=== PATIENT | female | born 1980 | race Caucasian/White ===

== ENCOUNTER 2019-10-20 03:35 | Emergency (ER) | payer OTHER ==
[~2019-10-20] VITALS: Ht 175.3 cm; Wt 100.5 kg
[2019-10-20 03:45] VITALS: BP 148/89
[2019-10-20] MEDS ORDERED: IV NORMAL SALINE 1,000ML 1,000 ML IV ONE (04:00)
--- NOTE | 2019-10-20 04:12 | PHYS DOC ---
Past History Past Medical History: Ovarian Cyst (KAELYN MORGAN DO) Adult General Chief Complaint Chief Complaint: VAGINAL PROBLEM HPI HPI Patient is a 39-year-old female who presents with vaginal bleeding. Onset was 3 days ago without any known inciting event or trauma. Nothing known makes better or worse. Patient reports vague suprapubic and left lower quadrant pain that is nonradiating and 6 out of 10 in severity. Timing of symptoms has been constant since onset. Associated symptoms include lightheadedness and nausea. Patient reports having x3 periods this month which is unusual for her. Admits first day of menstrual period was September 29 and lasted for 5 days, subsequent. Started October 07 and lasted for 7 days. Patient concerned that she passed a large clot yesterday evening prompting her to visit our ER for further care. Of note, only abdominal surgery patient has had is been a cholecystectomy. Patient has history of benign left ovarian cysts with prior rupture of cyst requiring x2 units RBC transfusion. She is not , she is not sexually active, no known history of vaginal infections such as STIs, no recent foreign body exposure or other trauma, denies any lesions (KAELYN MORGAN DO) Review of Systems Review of Systems Fourteen body systems of review of systems have been reviewed. See HPI for pertinent positives and negative responses, other knutson all other systems are negative, non-pertinent or non-contributory (KAELYN MROGAN DO) Current Medications Current Medications Current Medications Medications (Trade) Dose Ordered Sig/Mary Jo Start Time Stop Time Status Last Admin Dose Admin Ibuprofen (Motrin) 600 mg 1X ONCE 10/20/19 04:15 10/20/19 04:16 UNV Ondansetron HCl (Zofran) 4 mg 1X ONCE 10/20/19 04:15 10/20/19 04:16 UNV Sodium Chloride 1,000 ml @ 1,000 mls/hr 1X ONCE 10/20/19 04:00 10/20/19 04:59 UNV (KAELYN MORGAN DO) Physical Exam Physical Exam Constitutional: Well developed, well nourished, no acute distress, non-toxic appearance. HENT: Normocephalic, atraumatic, bilateral external ears normal, oropharynx moist, no oral exudates, nose normal. Eyes: PERRLA, EOMI, conjunctiva normal, no discharge. Neck: Normal range of motion, no tenderness, supple, no stridor. Cardiovascular: Heart rate regular, sinus rhythm, no murmurs rubs or gallops Lungs & Thorax: Bilateral breath sounds clear to auscultation Abdomen: Bowel sounds normal, soft, mild tenderness to suprapubic area and left lower quadrant, no guarding, no rebound, no masses, no pulsatile masses. Nonsurgical abdomen, no peritoneal signs : Unremarkable external genitalia, internal genitalia within normal limits, scant blood in vaginal vault without any obvious signs of trauma or active bleeding sites, no discharge, cervix unremarkable without lesions or any gross abnormalities Skin: Warm, dry, no erythema, no rash. Back: No tenderness, no CVA tenderness. Extremities: No tenderness, no cyanosis, no clubbing, ROM intact, no edema. Neurologic: Alert and oriented X 3, grossly normal motor & sensory function, no focal deficits noted. Psychologic: Affect normal, judgement normal, anxious mood (KAELYN MORGAN DO) EKG EKG EKG ordered and interpreted by myself at 0412 hrs. as sinus rhythm at 90 bpm, unremarkable intervals, no axis deviation, no acute ischemic findings, no STEMI (KAELYN MORGAN DO) Radiology/Procedures Radiology/Procedures [] (KAELYN MORGAN DO) Radiology/Procedures IMAGING REPORT Signed PATIENT: ASHU CONNOLLY ACCOUNT: [id number] : 1980 LOCATION: ER AGE: 39 SEX: F EXAM STATUS: REG ER ORD. PHYSICIAN: KAELYN MORGAN DO REASON: LLQ pain, vag bleeding, OMNI 300, 75ml PROCEDURE: CT ABD PELV W/ IV CONTRST ONLY PQRS Compliance Statement: One or more of the following individualized dose reduction techniques were utilized for this examination: 1. Automated exposure control 2. Adjustment of the mA and/or kV according to patient size 3. Use of iterative reconstruction technique CT ABD PELV W/ IV CONTRST ONLY Clinical Indication: Reason: LLQ pain, vag bleeding, Comparison: None. Technique: Helical CT imaging of the abdomen and pelvis is performed after 75 cc of Omnipaque 300 IV contrast. Oral contrast not administered. Findings: Lung bases are essentially clear. Cardiac size normal. There is mild fatty infiltration of the liver. Cholecystectomy. The spleen, pancreas, adrenal glands, and abdominal aorta are normal. Kidneys enhance symmetrically, no hydronephrosis. Bifid right collecting system. No obvious abnormality of the stomach. No dilated small bowel. Scattered stool in the colon. No colon wall thickening is seen. The appendix is normal. No abdominal adenopathy or free fluid. There are scattered subcentimeter mesenteric lymph nodes. Anteverted uterus. Urinary bladder is normal. There is a 3.2 cm right ovary functional cyst. There is trace pelvic free fluid. No acute bone abnormality. IMPRESSION: 1. No acute abdominal or pelvic abnormality. 2. Small right ovary functional cyst. Trace pelvic free fluid. Findings probably physiologic. 3. Mild fatty infiltration of the liver. Electronically signed by: Arron Shaffer MD (10/20/2019 6:52 AM) [facility] DICTATED AND SIGNED BY: ARRON SHAFFER MD DATE: 10/20/19651 CC: KAELYN MORGAN DO; PCP,NO; HAWA NELSON DO ~ (HAWA NELSON DO) Course & Med Decision Making Course & Med Decision Making Pertinent Labs and Imaging studies reviewed. (See chart for details) [] (KAELYN MORGAN DO) Course & Med Decision Making Concern for irregular menses for the past 2 months with right ovarian cyst, on anx/depression medications, no new med changes, on no BC. H/H stable at 13/41. H/o blood transfusion 2015 s/p ruptured hemorrhagic ovarian cyst. Pt HD stable. Pelvic exam documentation reviewed and d/w Dr. Morgan, no hemorrhage. HCG 2. BMP wnl. U/A contaminated-pt reports sometimes she feels as if she "doesn't get it all out," will treat with macrobid. CT showing right ovarian cyst with trace free pelvic fluid, fatty liver, no acute abdominal/pelvic abnormality. No FH uterine/ovarian ca. Will prescribe provers 5mg x5 days for metorrhagia and recommend pmd followup in 1 week for Hg check. Patient will be given strict ED return precautions for dyspnea, fatigue, heavy vaginal bleeding, severe abdominal, pelvic or back pain. Encouraged urgent outpatient follow-up with PMD and [facility]. Life-threatening processes were considered but are low suspicion at this time, given history and physical exam. Pt was educated on all prescription medications and adverse effects. All patient's questions were answered and pt was stable at time of discharge. Differential includes aortic dissection, aortic aneurysm, acute coronary syndrome, surgical abdomen (appendicitis, cholecystitis, ischemic bowel, strangulated hernia, etc), bowel obstruction or volvulus, bladder outlet obs truction, gastrointestinal bleeding, inflammatory bowel disease, peptic ulcer disease, sepsis, diverticular disease, ureterolithiasis, nephrolithiasis, ovarian or testicular torsion, ectopic , vaginal hemorrhage of infection I spoken with the patient and her caregivers. I explained the patient's condition, diagnoses and treatment plan based on the information available to me at this time. I have answered the patient and her caregiver's questions and addressed any concerns. The patient and her caregivers have a good understanding of patient's diagnosis, condition and treatment plan as can be expected at this point. Vital signs have been stable. Patient's condition is stable and appropriate for discharge from the emergency department. Patient will pursue further outpatient evaluation with primary care physician or other designated or consulting physician as outlined in the discharge instructions. The patient and/or caregivers are agreeable to this plan of care and follow-up instructions have been explained in detail. The patient and/or caregivers have received these instructions in written form and have expressed an understanding of the discharge instructions. The patient and/or caregivers are aware that any significant change of condition or worsening of symptoms should prompt immediate return to this or the closest emergency department or call to 911. (HAWA NELSON DO) Dragon Disclaimer Dragon Disclaimer This electronic medical record was generated, in whole or in part, using a voice recognition dictation system. (KAELYN MORGAN DO) Departure Departure: Impression: Primary Impression: Vaginal bleeding Additional Impressions: Right ovarian cyst Metrorrhagia Disposition: HOME/RESIDENCE PRIOR TO ADM Condition: STABLE Referrals: PCP,NO (PCP) Patient Instructions: Metrorrhagia, Ovarian Cyst Additional Instructions: Jose Maradiaga MD Obstetrics and Gynecology [facility] [employer] Address: [address] [place] [id number] Scripts Medroxyprogesterone Acetate (PROVERA) 5 Mg Tablet 1 TAB PO DAILY for vaginal bleeding for 5 Days, #5 TAB 11 Refills Prov: HAWA NELSON DO 10/20/19 Nitrofurantoin Monohyd/M-Cryst (MACROBID 100 MG CAPSULE) 100 Mg Capsule 1 CAP PO BID for dysuria for 5 Days, #10 CAP 0 Refills Prov: HAWA NELSON DO 10/20/19 Justification of Admission: Justification of Admission: Justification of Admission Dx: N/A (KAELYN MORGAN DO) Justification of Admission Dx: N/A (HAWA NELSON DO) Problem Qualifiers KAELYN MORGAN DO Oct 20, 2019 04:12 HAWA NELSON DO Oct 20, 2019 07:01
[2019-10-20] MEDS ORDERED: ONDANSETRON PF 4 MG/2 ML VIAL. IVP ONE (04:15)
[2019-10-20] MEDS ORDERED: IBUPROFEN 600 MG TABLET. PO ONE (04:15)
[2019-10-20 05:15] LABS: BASO % 1 % (0-3); EOS # 0.3 x10^3/uL (0.0-0.7); EOS % 4 % (0-3); HEMATOCRIT 41.3 % (36.0-47.0); HEMOGLOBIN 13.7 g/dL (12.0-15.5); LYMPH # 1.6 x10^3/uL (1.0-4.8); LYMPH % 23 % (24-48); MEAN CORPUSCULAR HEMOGLOBIN 30 pg (25-35); MEAN CORPUSCULAR HGB CONC 33 g/dL (31-37); MEAN CORPUSCULAR VOLUME 91 fL (79-100); MONO # 0.5 x10^3/uL (0.0-1.1); MONO % 7 % (0-9); NEUT # 4.4 x10^3uL (1.8-7.7); NEUT % 65 % (31-73); PLATELET COUNT 230 x10^3/uL (140-400); RED BLOOD COUNT 4.55 x10^6/uL (3.50-5.40); RED CELL DISTRIBUTION WIDTH 13.1 % (11.5-14.5); WHITE BLOOD COUNT 6.8 x10^3/uL (4.0-11.0)
[2019-10-20] MEDS ORDERED: IOHEXOL 300 MG/ML 75 ML VIAL. IV ONE (05:15)
[2019-10-20] MEDS ORDERED: CONTRAST GIVEN. MC PRN (05:15)
[2019-10-20 05:24] LABS: CALCIUM 8.5 mg/dL (8.5-10.1); CREATININE 0.8 mg/dL (0.6-1.0); GFR 80.3
--- NOTE | 2019-10-20 05:31 | EKG ---
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
[2019-10-20 06:04] LABS: BACTERIA,URINE FEW /HPF (0-FEW); BILIRUBIN,URINE NEG (NEG); CLARITY,URINE CLEAR; COLOR,URINE YELLOW; GLUCOSE,URINE NEG (NEG); NITRITE,URINE NEG (NEG); SQUAMOUS EPITHELIAL CELL,UR MOD /LPF
--- NOTE | 2019-10-20 06:55 | RAD ---
PQRS Compliance Statement: One or more of the following individualized dose reduction techniques were utilized for this examination: 1. Automated exposure control 2. Adjustment of the mA and/or kV according to patient size 3. Use of iterative reconstruction technique CT ABD PELV W/ IV CONTRST ONLY Clinical Indication: Reason: LLQ pain, vag bleeding, Comparison: None. Technique: Helical CT imaging of the abdomen and pelvis is performed after 75 cc of Omnipaque 300 IV contrast. Oral contrast not administered. Findings: Lung bases are essentially clear. Cardiac size normal. There is mild fatty infiltration of the liver. Cholecystectomy. The spleen, pancreas, adrenal glands, and abdominal aorta are normal. Kidneys enhance symmetrically, no hydronephrosis. Bifid right collecting system. No obvious abnormality of the stomach. No dilated small bowel. Scattered stool in the colon. No colon wall thickening is seen. The appendix is normal. No abdominal adenopathy or free fluid. There are scattered subcentimeter mesenteric lymph nodes. Anteverted uterus. Urinary bladder is normal. There is a 3.2 cm right ovary functional cyst. There is trace pelvic free fluid. No acute bone abnormality. IMPRESSION: 1. No acute abdominal or pelvic abnormality. 2. Small right ovary functional cyst. Trace pelvic free fluid. Findings probably physiologic. 3. Mild fatty infiltration of the liver. Electronically signed by: Arron Shaffer MD (10/20/2019 6:52 AM) [facility]
[2019-10-20] MEDS ORDERED: MEDR5TAB PO (07:16)
[2019-10-20] MEDS ORDERED: NITR100C62 PO (07:16)
== END 2019-10-20 07:22 | disposition home or self-care (01) ==
LOC: ER 03:35
DX: N93.9 Abnormal uterine and vaginal bleeding, unspecified (principal); N83.201 Unspecified ovarian cyst, right side; N92.1 Excessive and frequent menstruation with irregular cycle
CPT/HCPCS: 36415; 74177; 80048; 81001; 84702; 85025; 87086; 93005; 96361; 96374; 99285; J2405; J7030; Q9967